=== PATIENT | male | born 2000 | race Caucasian/White ===

== ENCOUNTER 2019-07-01 14:36 | Emergency (ER) | payer OTHER ==
[~2019-07-01] VITALS: Ht 175.3 cm; Wt 73.9 kg
[2019-07-01] MEDS ORDERED: KEFLEX500 M1 PO (16:12)
[2019-07-01 16:43] VITALS: BP 148/63
== END 2019-07-01 16:49 | disposition home or self-care (01) ==
LOC: ER 14:36
DX: S61.305A Unspecified open wound of left ring finger with damage to nail, initial encounter (principal); S61.213A Laceration without foreign body of left middle finger without damage to nail, initial encounter; X58.XXXA Exposure to other specified factors, initial encounter; Y93.89 Activity, other specified; Y92.89 Other specified places as the place of occurrence of the external cause; Y99.8 Other external cause status